=== PATIENT | female | born 1990 | race Two or more races ===

== ENCOUNTER 2023-11-26 19:20 | Emergency (ER) | payer OTHER, BC ==
[~2023-11-26] VITALS: Ht 167.6 cm; Wt 86.4 kg
[2023-11-26 19:20] VITALS: TEMP 98.3
[~2023-11-26 19:20] MED LIST: RALTEGRAVIR 400 MG TAB (ISENTRESS) PO SCH; TRUVADA 200MG/300MG TABLET PO SCH
[2023-11-26] MEDS ORDERED: EXPOSURE KIT-ADULT 7 DAY SUPPLY PO ONE (20:15)
[2023-11-26] MEDS ORDERED: BOOSTRIX VACCINE (TETANUS/DIPHTH/ACEL. PERTUSSIS) 0.5ML SYR IM.IMMUN ONE (20:15)
[2023-11-26] MEDS ORDERED: RALTEGRAVIR 400 MG TAB (ISENTRESS) PO ONE (20:35)
[2023-11-26] MEDS ORDERED: TRUVADA 200MG/300MG TABLET PO ONE (20:35)
[2023-11-26 20:43] LABS: BASO % 0.2 % (0.0-1.0); EOS % 0.3 % (0.0-3.0); HEMATOCRIT 41.2 % (36.0-47.0); HEMOGLOBIN 13.7 g/dl (12.0-15.5); LYMPH # 3.2 10^3/uL (1.5-5.0); LYMPH % 23.2 % (24.0-44.0); MEAN CORPUSCULAR HEMOGLOBIN 29.8 pg (27.0-33.0); MEAN CORPUSCULAR HGB CONC 33.3 g/dl (32.0-36.5); MEAN CORPUSCULAR VOLUME 89.6 fl (80.0-96.0); MONO # 0.6 10^3/uL (0.0-0.8); MONO % 4.4 % (2.0-8.0); NEUTROPHILS # 9.9 10^3/uL (1.5-8.5); NEUTROPHILS % 71.5 % (36.0-66.0); PLATELET COUNT, AUTOMATED 321 10^3/uL (150-450); WHITE BLOOD COUNT 13.8 10^3/uL (4.0-10.0)
[2023-11-26 21:18] LABS: ALBUMIN 4.8 G/DL (3.2-5.2); ALKALINE PHOSPHATASE 56 U/L (46-116); ALT/SGPT 36 U/L (7.0-40); AST/SGOT 30 U/L (<34); BILIRUBIN,TOTAL 0.5 MG/DL (0.3-1.2); BLOOD UREA NITROGEN 20 MG/DL (9-23); CALCIUM LEVEL 10.2 MG/DL (8.5-10.1); CARBON DIOXIDE LEVEL 23 MMOL/L (20-31); CHLORIDE LEVEL 108 MMOL/L (98-107); CREATININE FOR GFR 0.67 MG/DL (0.55-1.30); GLOMERULAR FILTRATION RATE > 60.0 (>60); GLUCOSE, FASTING 83 MG/DL (60-100); SODIUM LEVEL 139 MMOL/L (136-145); TOTAL PROTEIN 8.2 G/DL (5.7-8.2)
[2023-11-26 21:20] LABS: HEPATITIS B SURFACE ANTIBODY POSITIVE (POSITIVE)
[2023-11-26 21:33] LABS: HCG, SERUM QUALITATIVE NEGATIVE (NEGATIVE)
[2023-11-26] MEDS ORDERED: ONDA4TAB6 PO (21:35)
[2023-11-26 21:45] LABS: HIV 1&2 SCREEN NEGATIVE (NEGATIVE)
[2023-11-26 21:50] VITALS: BP 131/72; O2SAT 98
[2023-11-26 21:52] LABS: HEPATITIS C VIRUS ABY INDEX 0.03 INDEX (<0.8)
[2023-11-26] MEDS ORDERED: TRUV1TAB2 PO (22:26)
[2023-11-26] MEDS ORDERED: RALT40TA PO (22:26)
== END 2023-11-26 22:17 | disposition home or self-care (01) ==
LOC: M ED 19:20
DX: S61.232A Puncture wound without foreign body of right middle finger without damage to nail, initial encounter (principal); Z77.21 Contact with and (suspected) exposure to potentially hazardous body fluids; Y92.9 Unspecified place or not applicable; Y93.9 Activity, unspecified; Y99.0 Civilian activity done for income or pay; Z79.83 Long term (current) use of bisphosphonates; Z79.899 Other long term (current) drug therapy